=== PATIENT | male | born 1955 | race Asian ===

== ENCOUNTER 2024-01-28 05:21 | Emergency (ER) | payer MEDICARE, OTHER ==
[~2024-01-28] VITALS: Ht 170.2 cm; Wt 95.5 kg
[~2024-01-28 05:21] MED LIST: METF-1211 PO
[2024-01-28 06:23] VITALS: TEMP 100.1
[2024-01-28 06:41] LABS: COVID AG,FIA SOURCE NASAL SWAB
[2024-01-28] MEDS: ACETAMINOPHEN 325 MG TABLET PO ONE (06:43)
[2024-01-28] MEDS: SODIUM CHLORIDE 0.9% 2,850 ML IV ONE (06:43)
[2024-01-28 06:45] LABS: BASOPHILS % (AUTO) 0.5 % (0.0-2.0); EOSINOPHILS % (AUTO) 0.4 % (1.0-6.0); HEMATOCRIT 35.5 % (41-53); HEMOGLOBIN 11.5 g/dL (13.5-17.5); LYMPHOCYTES # (AUTO) 0.7 K/uL (1.0-4.8); LYMPHOCYTES % (AUTO) 8.5 % (22.0-44.0); MEAN CORPUSCULAR HEMOGLOBIN 27.3 pg (26.0-34.0); MEAN CORPUSCULAR HGB CONC 32.3 G/dL (31.0-37.0); MEAN CORPUSCULAR VOLUME 84 fL (80-100); MONOCYTES # (AUTO) 1.4 K/uL (0.1-1.0); NEUTROPHILS # (AUTO) 6.3 K/uL (1.8-7.7); NEUTROPHILS % (AUTO) 74.6 % (40.0-70.0); PLATELET COUNT (AUTO) 226 K/uL (150-450); RED BLOOD CELL COUNT(AUTO) 4.21 MIL/uL (4.50-5.90); RED CELL DISTRIBUTION WIDTH 15.4 % (11.5-14.5); WHITE BLOOD COUNT (AUTO) 8.4 K/uL (4.5-11.0)
[2024-01-28 06:56] LABS: ANION GAP 12 mmol/L (8-16); CALCIUM, TOTAL 8.8 mg/dL (8.8-10.5); CARBON DIOXIDE 23 mmol/L (22-29); CHLORIDE 101 mmol/L (98-107); CREATININE 1.06 mg/dL (0.60-1.30); GLOMERULAR FILTR. RATE CALC > 60 mL/min (>60); GLUCOSE,RANDOM 142 mg/dL (70-110); POTASSIUM 3.9 mmol/L (3.5-5.1); SODIUM SERUM 136 mmol/L (136-145); UREA NITROGEN, BLOOD 10 mg/dL (7-18)
[2024-01-28 07:04] LABS: LACTIC ACID 1.6 mmol/L (0.4-2.0)
[2024-01-28 07:35] LABS: SARS-COV2 (COVID) ANTIGEN,FIA Negative (Negative)
[2024-01-28 07:36] LABS: INFLUENZA TYPE A NEGATIVE FOR TYPE A (NEGATIVE); INFLUENZA TYPE B NEGATIVE FOR TYPE B (NEGATIVE)
[2024-01-28 08:00] VITALS: BP 110/58; PULSE 76; RESP 18; O2SAT 95
[2024-01-28 08:18] LABS: APPEARANCE,URINE CLEAR (CLEAR); BILIRUBIN,URINE NEGATIVE (NEGATIVE); COLOR,URINE LIGHT YELLOW (YELLOW); GLUCOSE, URINE (UA) NEGATIVE (NEGATIVE); KETONES,URINE NEGATIVE (NEGATIVE); LEUKOCYTE ESTERASE ,URINE NEGATIVE (NEGATIVE); NITRATE,URINE NEGATIVE (NEGATIVE); OCCULT BLOOD,URINE NEGATIVE (NEGATIVE); PROTEIN,URINE NEGATIVE (NEGATIVE); SPECIFIC GRAVITIY, URINE 1.018 (1.003-1.030); UROBILINOGEN,URINE <=1.0 mg/dL (<=1.0)
[2024-01-28 08:22] LABS: BACTERIA,URINE None Seen /HPF (None Seen); RBC,URINE None Seen /HPF (0-2); WBC,URINE None Seen /HPF (0-5)
== END 2024-01-28 08:56 | disposition home or self-care (01) ==
LOC: EMS 05:22
DX: R50.9 Fever, unspecified (principal); E11.9 Type 2 diabetes mellitus without complications; Z20.822 Contact with and (suspected) exposure to COVID-19
CPT/HCPCS: 99284; 96360; 71045; 87426; 80048; 81001; 83605; 85025; 87804; 36415; J7030

== ENCOUNTER 2024-09-24 17:59 | Emergency (ER) | payer MEDICARE, OTHER ==
[~2024-09-24] VITALS: Ht 162.6 cm; Wt 86.4 kg
[2024-09-24] MEDS ORDERED: ATOR20TA65 PO (18:28)
[2024-09-24] MEDS ORDERED: GABA-1181 PO (18:28)
[2024-09-24] MEDS ORDERED: PIOG30TA70 PO (18:28)
[2024-09-24] MEDS ORDERED: SEMA2PEN SQ (18:28)
[2024-09-24] MEDS ORDERED: LISI5TAB21 PO (18:28)
[2024-09-24 21:19] LABS: HEMATOCRIT 23.7 % (41-53); HEMOGLOBIN 7.4 g/dL (13.5-17.5); LYMPHOCYTES # (AUTO) 1.7 K/uL (1.0-4.8); LYMPHOCYTES % (AUTO) 27.4 % (22.0-44.0); MEAN CORPUSCULAR HEMOGLOBIN 24.5 pg (26.0-34.0); MEAN CORPUSCULAR HGB CONC 31.1 G/dL (31.0-37.0); MEAN CORPUSCULAR VOLUME 79 fL (80-100); MONOCYTES # (AUTO) 0.9 K/uL (0.1-1.0); MONOCYTES % (AUTO) 15.1 % (2.0-9.0); NEUTROPHILS # (AUTO) 3.4 K/uL (1.8-7.7); NEUTROPHILS % (AUTO) 55.5 % (40.0-70.0); PLATELET COUNT (AUTO) 334 K/uL (150-450); RED BLOOD CELL COUNT(AUTO) 3.01 MIL/uL (4.50-5.90); RED CELL DISTRIBUTION WIDTH 22.1 % (11.5-14.5); WHITE BLOOD COUNT (AUTO) 6.2 K/uL (4.5-11.0)
[2024-09-24 21:27] LABS: ANION GAP 10 mmol/L (8-16); CALCIUM, TOTAL 8.6 mg/dL (8.8-10.5); CARBON DIOXIDE 28 mmol/L (22-29); CHLORIDE 99 mmol/L (98-107); CREATININE 0.79 mg/dL (0.60-1.30); GLOMERULAR FILTR. RATE CALC > 60 mL/min (>60); GLUCOSE,RANDOM 230 mg/dL (70-110); POTASSIUM 4.1 mmol/L (3.5-5.1); SODIUM SERUM 137 mmol/L (136-145); UREA NITROGEN, BLOOD 8 mg/dL (7-18)
[2024-09-24 21:32] LABS: PROTHROMBIN TIME 13.2 SEC (9.4-11.6)
[2024-09-24 21:37] LABS: CREATINE KINASE, TOTAL ONLY 50 U/L (39-308); TROPONIN I-HIGH SENSITIVITY 7 ng/L (<76)
[2024-09-24 21:38] LABS: B-TYPE NATRIURETIC PEPTIDE 69 pg/mL (0-100)
[2024-09-24 21:56] LABS: APPEARANCE,URINE CLEAR (CLEAR); BILIRUBIN,URINE NEGATIVE (NEGATIVE); COLOR,URINE YELLOW (YELLOW); GLUCOSE, URINE (UA) 70-100 mg/dL (NEGATIVE); KETONES,URINE NEGATIVE (NEGATIVE); LEUKOCYTE ESTERASE ,URINE NEGATIVE (NEGATIVE); NITRATE,URINE NEGATIVE (NEGATIVE); OCCULT BLOOD,URINE TRACE (NEGATIVE); PH,URINE 5.5 (5.0-8.0); PROTEIN,URINE 30-70 mg/dL (NEGATIVE); SPECIFIC GRAVITIY, URINE 1.019 (1.003-1.030)
[2024-09-24 22:11] LABS: BACTERIA,URINE Rare /HPF (None Seen); RBC,URINE 0-2 /HPF (0-2); SQUAMOUS EPITHELIAL CELL,UR Few /LPF (None Seen); WBC,URINE 0-2 /HPF (0-5)
[2024-09-24 22:12] LABS: HYALINE CASTS, URINE 0-2 /LPF (None Seen)
[2024-09-24] MEDS: SODIUM CHLORIDE 0.9% 1,000 ML IV ONE (23:36)
[2024-09-24] MEDS: PIPERACILLIN/TAZO 3.375 GM/D5W 50 ML IV ONE (23:36)
[2024-09-24 23:46] LABS: LACTIC ACID 1.7 mmol/L (0.4-2.0)
[2024-09-25 05:43] VITALS: BP 133/71; PULSE 76; RESP 18; TEMP 97.9; O2SAT 98
== END 2024-09-25 08:41 | disposition short-term general hospital (02) ==
LOC: EMS 17:59
DX: L03.116 Cellulitis of left lower limb (principal); J18.9 Pneumonia, unspecified organism; R16.0 Hepatomegaly, not elsewhere classified; E11.9 Type 2 diabetes mellitus without complications; R10.9 Unspecified abdominal pain
CPT/HCPCS: 99285; 74176; 96365; 71045; 80048; 81001; 82550; 83605; 83880; 84484; 85025; 85610; 85730; 93005; 36415; J2543; J7030